=== PATIENT | male | born 1990 | race Caucasian/White ===

== ENCOUNTER 2020-03-31 12:29 | Emergency (ER) | payer OTHER ==
[2020-03-31 13:02] VITALS: BP 130/84; PULSE 85; TEMP 97.8; BMI 22.1
[2020-03-31 13:28] LABS: BASO % 1.3 % (0-2.0); EOS % 2.6 % (0-4.5); HEMATOCRIT 43.9 % (35.4-49); HEMOGLOBIN 15.4 GM/dl (11.7-16.9); LYMPH % 25.2 % (8-40); MCH 30.5 pg (25.7-33.7); MEAN CELL VOLUME 86.9 fl (80-96); MEAN PLT VOLUME 8.3 fl (7.5-11.1); MONO % 6.3 % (3.8-10.2); NEUT % 64.6 % (42.8-82.8); PLATELET COUNT 250 K/MM3 (134-434); RBC 5.05 M/mm3 (4.00-5.60); RDW 12.8 % (11.9-15.9); WHITE BLOOD COUNT 7.2 K/mm3 (4.0-10.8)
[2020-03-31 13:38] LABS: ALBUMIN 4.8 g/dl (3.4-5.0); BILIRUBIN,TOTAL 0.9 mg/dl (0.2-1); CALCIUM 9.4 mg/dl (8.5-10); CREATININE 0.9 mg/dl (0.55-1.3); POTASSIUM 3.8 mmol/L (3.5-5.1); TOT PROT 7.5 g/dl (6.4-8.2)
== END 2020-03-31 14:25 | disposition home or self-care (01) ==
LOC: FER 12:29
DX: K52.82 Eosinophilic colitis (principal)
CPT/HCPCS: 36415; 80053; 81003; 85025; 99283-25